=== PATIENT | male | born 1945 | race Caucasian/White ===

== ENCOUNTER 2020-12-04 05:49 | Emergency (ER) | payer OTHER ==
[~2020-12-04] VITALS: Ht 167.6 cm; Wt 79.4 kg
[2020-12-04] MEDS ORDERED: SIMVASTATIN5 MG (06:07)
[2020-12-04] MEDS ORDERED: COZAAR25 MG (06:07)
[2020-12-04] MEDS ORDERED: PEPCID AC20 MG PO (14:14)
[2020-12-04] MEDS ORDERED: INTESTINEX680 M1 PO (14:14)
== END 2020-12-04 14:23 | disposition home or self-care (01) ==
LOC: ER 05:49
DX: K52.89 Other specified noninfective gastroenteritis and colitis (principal); K59.09 Other constipation; R10.32 Left lower quadrant pain

== ENCOUNTER 2020-12-04 19:19 | Inpatient (IN) | payer OTHER ==
[~2020-12-04] VITALS: Ht 170.2 cm; Wt 84.4 kg
[~2020-12-04 19:19] MED LIST: COZAAR25 MG; INTESTINEX680 M1 PO; PEPCID AC20 MG PO; SIMVASTATIN5 MG
[2020-12-07] MEDS ORDERED: FLAGYL500MG PO (21:20)
[2020-12-07] MEDS ORDERED: CIPRO250 MG PO (21:21)
== END 2020-12-06 14:04 | disposition home or self-care (01) | DRG 392 ==
LOC: ER 19:19 → MEDJ 21:33
PROVIDERS: ADMIT Internal Medicine; ATTEND Internal Medicine
PROC: BW21YZZ Computerized Tomography (CT Scan) of Abdomen and Pelvis using Other Contrast (ICD-10-PCS; principal; 2020-12-04)
DX: K52.89 Other specified noninfective gastroenteritis and colitis (principal); I10 Essential (primary) hypertension; Z20.822 Contact with and (suspected) exposure to COVID-19; K59.09 Other constipation

== ENCOUNTER 2020-12-07 21:00 | Emergency (ER) | payer OTHER ==
[~2020-12-07] VITALS: Ht 170.2 cm; Wt 83.0 kg
[2020-12-07] MEDS ORDERED: FLAGYL500MG PO (21:20)
[2020-12-07] MEDS ORDERED: CIPRO250 MG PO (21:21)
[2020-12-08] MEDS ORDERED: CIPRO500 MG PO (06:00)
[2020-12-08] MEDS ORDERED: KETO10TA2 PO (06:00)
[2020-12-08] MEDS ORDERED: TAMS0.4C PO (06:00)
== END 2020-12-08 06:14 | disposition home or self-care (01) ==
LOC: ER 21:00
DX: N20.1 Calculus of ureter (principal); N13.39 Other hydronephrosis; I10 Essential (primary) hypertension

== ENCOUNTER 2022-08-01 10:15 | Emergency (ER) | payer OTHER ==
[~2022-08-01] VITALS: Ht 170.2 cm; Wt 81.6 kg
[~2022-08-01 10:15] MED LIST changes: +CIPRO250 MG PO; +CIPRO500 MG PO; +FLAGYL500MG PO; +KETO10TA2 PO; +TAMS0.4C PO
[2022-08-01] MEDS ORDERED: PROSCAR5 MG PO (10:31)
== END 2022-08-01 17:32 | disposition home or self-care (01) ==
LOC: ER 10:15
DX: K52.9 Noninfective gastroenteritis and colitis, unspecified (principal); K57.30 Diverticulosis of large intestine without perforation or abscess without bleeding; N20.0 Calculus of kidney; K45.8 Other specified abdominal hernia without obstruction or gangrene; Z88.8 Allergy status to other drugs, medicaments and biological substances